=== PATIENT | female | born 1985 | race Caucasian/White ===

== ENCOUNTER 2018-08-02 02:27 | Emergency (ER) | payer OTHER ==
[2018-08-02] MEDS ORDERED: Tetan/Diph/Pertus SYR(Tdap)* 0.5 ML SYR(BOOSTRIX) use SYR IM ONE (05:09)
[2018-08-02] MEDS ORDERED: oxyCODONE/Acetamin 5/325 MG* TAB PO ONE (05:09)
[2018-08-02] MEDS ORDERED: Ibuprofen TAB* 800 MG PO ONE (05:09)
--- NOTE | 2018-08-02 05:41 | ED ---
Throat Pain/Nasal Congestion - HPI Summary HPI Summary: Pt is 33 y/o F who presents to ED c/o nasal injury. She fell on her nose about 3 hours ago and it has been bleeding. Rates the pain a 4/10 in severity and describes it as a throbbing. Ice alleviates the pain. Denies fever. - History of Current Complaint Chief Complaint: EDFacialInjury Time Seen by Provider: 08/02/18 05:02 Hx Obtained From: Patient Onset/Duration: Lasting Hours, Still Present Severity: Moderate Cough: None - Allergies/Home Medications Allergies/Adverse Reactions: Allergies Allergy/AdvReac Type Severity Reaction Status Date / Time No Known Allergies Allergy Verified 08/02/18 02:44 PMH/Surg Hx/FS Hx/Imm Hx Opthamlomology History: Denies: Hx Legally Blind Neurological History: Denies: Hx Dementia Infectious Disease History: No Infectious Disease History: Denies: Traveled Outside the [place] in Last 30 Days - Family History Known Family History: Negative: Blood Disorder Review of Systems Negative: Fever Positive: Other - Nasal pain All Other Systems Reviewed And Are Negative: Yes Physical Exam - Summary Physical Exam Summary: VITAL SIGNS: Reviewed. GENERAL: Patient is a well-developed and nourished female who is lying comfortable in the stretcher. Patient is not in any acute respiratory distress. HEAD AND FACE: Nasal swelling deformity with dried blood in both nostrils. 3 mm superficial puncture wound at proximal mid nose. No ecchymosis or skull depressions. EYES: PERRLA, EOMI x 2, No injected conjunctiva, no nystagmus. EARS: Hearing grossly intact. Ear canals and tympanic membranes are within normal limits. MOUTH: Oropharynx within normal limits. NECK: Supple, trachea is midline, no adenopathy, no JVD, no carotid bruit, no c- spine tenderness, neck with full ROM. CHEST: Symmetric, no tenderness at palpation LUNGS: Clear to auscultation bilaterally. No wheezing or crackles. CVS: Regular rate and rhythm, S1 and S2 present, no murmurs or gallops appreciated ABDOMEN: Soft, non-tender. No signs of distention. No rebound no guarding, and no masses palpated. Bowel sounds are normal. EXTREMITIES: FROM in all major joints, no edema, no cyanosis or clubbing. NEURO: Alert and oriented x 3. No acute neurological deficits. Speech is normal and follows commands. SKIN: Dry and warm Triage Information Reviewed: Yes Vital Signs On Initial Exam: Initial Vitals Temp Pulse Resp BP Pulse Ox 97.9 F 86 16 132/77 99 08/02/18 02:40 08/02/18 02:40 08/02/18 02:40 08/02/18 02:40 08/02/18 02:40 Vital Signs Reviewed: Yes Diagnostics - Vital Signs Vital Signs Temp Pulse Resp BP Pulse Ox 08/02/18 02:40 97.9 F 86 16 132/77 99 - Laboratory Lab Statement: Any lab studies that have been ordered have been reviewed, and results considered in the medical decision making process. EENT Course/Dx - Course Course Of Treatment: Pt is 33 y/o F who presents to ED c/o nasal injury. She fell on her nose about 3 hours ago and it has been bleeding. Denies fever. Physical exam revealed nasal swelling deformity with dried blood in both nostrils and 3 mm superficial puncture wound at proximal mid nose. The superficial puncture wound does not need stitches. Pt discharged with Afrin and told to follow up with ENT in 2 weeks. - Diagnoses Provider Diagnoses: Nasal fracture Discharge - Sign-Out/Discharge Documenting (check all that apply): Patient Departure - Discharge - Discharge Plan Condition: Stable Disposition: HOME Prescriptions: Ibuprofen TAB* [Motrin TAB* 800 MG] 800 mg PO Q6H PRN #30 tab PRN Reason: Pain oxyCODONE/Acetamin 5/325 MG* [Percocet 5/325 TAB*] 1 tab PO Q6H PRN #14 tab MDD 4 PRN Reason: Pain Patient Education Materials: Nasal Fracture (ED) Referrals: Jeovanny Raymond MD [Medical Doctor] - 2 Weeks Additional Instructions: Afrin 1 spray each nostril twice a day. Use ice and pain medication as needed. See ENT in 2 weeks. RETURN TO ED FOR ANY NEW OR WORSENING SYMPTOMS. - Attestation Statements Document Initiated by Scribe: Yes Documenting Scribe: Bhupinder Snell Provider For Whom Scribe is Documenting (Include Credential): Dr. Nohemi Augilar MD Scribe Attestation: Bhupinder Rodriguez, scribed for Dr. Nohemi Aguilar MD on 08/02/18 at 0631.
[2018-08-02] MEDS ORDERED: Oxymetazoline 0.05% NASAL SPR* 15 ML BTL BOTH NARES SCH (06:00)
[2018-08-02 06:19] VITALS: BP 130/72
--- NOTE | 2018-08-02 08:52 | RAD ---
Indication: Fall, nasal injury. 3 views of the nasal bones demonstrate minimally displaced fracture through the distal tip of the nasal arch. Soft tissue swelling is present. IMPRESSION: Minimally displaced fracture of the nasal tip. R0
== END 2018-08-02 06:05 | disposition home or self-care (01) ==
LOC: ED 02:27
DX: S02.2XXA Fracture of nasal bones, initial encounter for closed fracture (principal); W19.XXXA Unspecified fall, initial encounter; Y92.9 Unspecified place or not applicable
CPT/HCPCS: 70160; 90471; 90715; 99282; A9270-GY

== ENCOUNTER → 2018-08-07 11:33 | Day surgery (SDC) | payer OTHER ==
[~2018-08-07 11:33] MED LIST: Buffered Lidocaine 0.9% SYRIN* 5 ML/SYR SYRINGE ONE; Lidocain 1% EPI 1:100,000 * 30 ML MDV ONE; Lidocaine 2% PF * 5 ML VIAL ONE; Lidocaine 4% TOPICAL* 50 ML TOP.SOLN ONE; Naloxone* 0.4 MG/ML 1 ML VIAL IV PRN; Ondansetron INJ* 2 MG/ML VIAL IV PRN; Oxymetazoline 0.05% NASAL SPR* 15 ML BTL ONE; Propofol* 10 MG/ML 20 ML BTL IV PUSH ONE; fentaNYL* 50 MCG/ML 2 ML VIAL (100 MCG VIAL) IV PRN; fentaNYL* 50 MCG/ML 2 ML VIAL (100 MCG VIAL) ONE; oxyCODONE/Acetamin 5/325 MG* TAB ONE
[2018-08-07 15:50] VITALS: BP 120/80
--- NOTE | 2018-08-08 06:08 | OP ---
DATE OF OPERATION: 08/07/18 - SDS DATE OF : 85 SURGEON: Tamir Rios MD ANESTHESIA: General endotracheal anesthesia. PRE-OP DIAGNOSIS: Displaced closed nasal fracture. POST-OP DIAGNOSIS: Displaced closed nasal fracture. OPERATIVE PROCEDURE: Closed reduction nasal fracture. COMPLICATIONS: None. DISPOSITION: Good. SPECIMEN: None. BLOOD LOSS: None. DESCRIPTION OF PROCEDURE: The patient was taken to the operating room and placed in the supine position on the operating room table, general anesthesia was induced. She was orotracheally intubated. Nose packed with cottonoids impregnated with oxymetazoline and 4% lidocaine. I was able to push the nasal bones back into position with little snap. I then used the intranasal elevator to make sure there were not any displaced segments. Mastisol was placed on the skin. Steri-Strips were placed over the nose, an Aquaplast splint was fashioned , warmed molded to the nose, cooled and taped in place. The patient tolerated this procedure well. No complications. Transferred to recovery room in stable condition. [id number]/[facility] #: [id number] MTDD
== END | disposition home or self-care (01) ==
LOC: OR 11:33
PROVIDERS: ATTEND Otolaryngology
DX: S02.2XXA Fracture of nasal bones, initial encounter for closed fracture (principal); Z72.0 Tobacco use; X58.XXXA Exposure to other specified factors, initial encounter; Y92.9 Unspecified place or not applicable
CPT/HCPCS: 81025; A9270-GY; J2704; J3010

== ENCOUNTER 2018-08-19 10:47 | Day surgery (SDC) | payer OTHER ==
[~2018-08-19 10:47] MED LIST changes: +Buffered Lidocaine 0.9% SYRIN* 5 ML/SYR SYRINGE INTRADERM ONE; -Buffered Lidocaine 0.9% SYRIN* 5 ML/SYR SYRINGE ONE; +Famotidine IV* 10 MG/ML 2 ML (20 mg) IV ONE; -Lidocain 1% EPI 1:100,000 * 30 ML MDV ONE; -Lidocaine 2% PF * 5 ML VIAL ONE; -Lidocaine 4% TOPICAL* 50 ML TOP.SOLN ONE; -Naloxone* 0.4 MG/ML 1 ML VIAL IV PRN; -Ondansetron INJ* 2 MG/ML VIAL IV PRN; -Oxymetazoline 0.05% NASAL SPR* 15 ML BTL ONE; -Propofol* 10 MG/ML 20 ML BTL IV PUSH ONE; -fentaNYL* 50 MCG/ML 2 ML VIAL (100 MCG VIAL) IV PRN; -fentaNYL* 50 MCG/ML 2 ML VIAL (100 MCG VIAL) ONE; -oxyCODONE/Acetamin 5/325 MG* TAB ONE
[2018-08-19] MEDS ORDERED: Oxymetazoline 0.05% NASAL SPR* 15 ML BTL ONE (10:56)
[2018-08-19] MEDS ORDERED: Lidocaine 4% TOPICAL* 50 ML TOP.SOLN ONE (10:56)
[2018-08-19] MEDS ORDERED: Famotidine IV* 10 MG/ML 2 ML (20 mg) ONE (10:58)
[2018-08-19] MEDS ORDERED: Propofol* 10 MG/ML 20 ML BTL IV PUSH ONE (11:58)
[2018-08-19] MEDS ORDERED: Lidocaine 2% PF * 5 ML VIAL ONE (11:58)
[2018-08-19] MEDS ORDERED: Dexamethasone IV* 4 MG/ML 1 ML (4 MG) ONE (11:58)
[2018-08-19] MEDS ORDERED: Midazolam* 1 MG/ML 2 ML VIAL (2 MG) ONE (11:58)
[2018-08-19] MEDS ORDERED: fentaNYL* 50 MCG/ML 2 ML VIAL (100 MCG VIAL) ONE ×2 (11:58→12:54)
[2018-08-19] MEDS ORDERED: HYDROcodone/ACETAMIN 5-325 MG* 1 TAB PO PRN ×2 (12:01)
[2018-08-19] MEDS ORDERED: PROCHLORPERAZINE INJ 5 MG/ML 2 ML VIAL IV PRN (12:01)
[2018-08-19] MEDS ORDERED: Acetaminophen TAB* 325 MG PO PRN (12:01)
[2018-08-19] MEDS ORDERED: Naloxone* 0.4 MG/ML 1 ML VIAL IV PRN (12:01)
[2018-08-19] MEDS ORDERED: Ondansetron INJ* 2 MG/ML VIAL IV PRN (12:01)
[2018-08-19] MEDS ORDERED: DiMENhydriNATE IV* 50 MG/ML VIAL IV PUSH PRN (12:01)
[2018-08-19] MEDS ORDERED: Ketorolac INJ* 30 MG/ML 1 ML VIAL ONE (12:34)
[2018-08-19] MEDS ORDERED: oxyCODONE/Acetamin 5/325 MG* TAB ONE (12:54)
[2018-08-19] MEDS: fentaNYL* 50 MCG/ML 2 ML VIAL (100 MCG VIAL) IV PRN ×2 (12:58→13:14)
[2018-08-19] MEDS ORDERED: Ondansetron INJ* 2 MG/ML VIAL ONE (13:38)
[2018-08-19 13:59] VITALS: BP 118/75
--- NOTE | 2018-08-19 22:32 | OP ---
DATE OF OPERATION: 08/19/18 - SDS DATE OF : 85 SURGEON: Luis Rios MD PRE-OP DIAGNOSIS: Displaced closed nasal fracture. POST-OP DIAGNOSIS: Displaced closed nasal fracture. OPERATIVE PROCEDURE: Closed reduction of nasal fracture under LMA anesthesia. COMPLICATIONS: None. DISPOSITION: Good. SPECIMENS: None. ESTIMATED BLOOD LOSS: None. DESCRIPTION OF PROCEDURE: The patient was taken to the operating room, placed in supine position on the operating table, maintained with general anesthesia, and LMA was placed. Her nose was packed with cottonoids impregnated with oxymetazoline and 4% lidocaine. She had a closed reduction of nasal fractures about a week and a half ago and it looked good intraoperatively, but when we took the splint down, it had shifted again and she was taken back for repeat procedure. The nasal bones were manipulated. They were mobile. I was able to shift back over with a snap. I used intranasal elevators to try to make sure it was not depressed. I moved them back and forth and tried to get them in good alignment. It looked good at the end of this stage of the procedure. Steri-Strips were placed over the skin after Mastisol was applied. An Aquaplast splint was fashioned and molded to the nose and taped into place. Prior to placement of the Aquaplast splint, I did take Fibrillar and placed it high up in the vestibule of her nose bilaterally in an attempt to support the nasal bones. The Aquaplast splint was taped into place. The patient tolerated this procedure well, no complications, and transferred to the recovery room in stable condition. [id number]/[facility] #: [id number] JAVON
== END 2018-08-19 14:02 | disposition home or self-care (01) ==
LOC: OR 10:47
PROVIDERS: ATTEND Otolaryngology
DX: S02.2XXA Fracture of nasal bones, initial encounter for closed fracture (principal); Z72.0 Tobacco use; F41.9 Anxiety disorder, unspecified; X58.XXXA Exposure to other specified factors, initial encounter; Y92.9 Unspecified place or not applicable
CPT/HCPCS: 81025; A9270-GY; J1100; J1885; J2250; J2405; J2704; J3010